=== PATIENT | female | born 1975 | race Caucasian/White ===

== ENCOUNTER → 2016-07-10 | Outpatient (REF) | payer OTHER ==
[~2016-07-10] MED LIST: 8 HO650T PO; ACET500T37 PO; BACL10TA2 PO; CYCL10TA PO; DOCU10CA PO; GABA-283 PO; KETO10TAB PO; MILKSUS PO; PERC5TAB6 PO; TYLE325T5 PO; ULTR50TA PO
== END ==
LOC: M LAB REF 20:08
PROVIDERS: ATTEND Physician Assistant
DX: N39.0 Urinary tract infection, site not specified (principal)

== ENCOUNTER 2016-10-01 11:49 | Emergency (ER) | payer OTHER ==
[~2016-10-01] VITALS: Ht 165.1 cm; Wt 120.2 kg
[2016-10-01 11:50] VITALS: BP 148/76
[2016-10-01] MEDS ORDERED: LOSA50TA21 PO (12:04)
[2016-10-01] MEDS ORDERED: AMRI15CA10 PO (12:04)
[2016-10-01] MEDS ORDERED: [UNRECOGNIZED DRUG - CODE] XX (12:04)
[2016-10-01] MEDS ORDERED: diazePAM 5 MG TAB PO ONE (13:15)
[2016-10-01] MEDS ORDERED: VALI10TA PO (13:38)
== END 2016-10-01 14:01 | disposition home or self-care (01) ==
LOC: M ED 13:47
DX: M54.12 Radiculopathy, cervical region (principal); G89.29 Other chronic pain; G43.909 Migraine, unspecified, not intractable, without status migrainosus; Z79.899 Other long term (current) drug therapy; Z88.5 Allergy status to narcotic agent; Z88.8 Allergy status to other drugs, medicaments and biological substances; Z88.0 Allergy status to penicillin; Z98.84 Bariatric surgery status

== ENCOUNTER → 2016-11-28 | Outpatient (CLI) | payer OTHER ==
[~2016-11-28] MED LIST changes: -8 HO650T PO; +8 HO650T2 PO; +ACET-683 PO; -ACET500T37 PO; +AMRI15CA17 PO; +LOSA50TA5 PO; +PERC5TAB12 PO; -PERC5TAB6 PO; -ULTR50TA PO; +ULTR50TA8 PO; +VALI10TA PO; +[UNRECOGNIZED DRUG - CODE] XX
--- NOTE | 2016-11-28 16:14 | REP ---
REASON FOR EXAM: Back pain. COMPARISON EXAMINATION: 05/01/2013. The prior examination was within normal limits. Today's examination again shows vertebral body height and alignment to be within normal limits. Disc space height and hydrational signal is essentially unchanged and again seen to be within normal limits. No abnormal signal has developed in the imaged portion of the spinal cord. The marrow signal is again seen to be normal. At the L1-2 level there is no change. There was no disc herniation or foraminal narrowing or central canal stenosis. The L2-3 level has no change. There is no disc herniation, foraminal narrowing or central canal stenosis. At the L3-4 level there is no change. There is no disc herniation, foraminal narrowing or central canal stenosis. At the L4-5 level there is no change. There is no disc herniation, foraminal narrowing, or central canal stenosis. At the L5-S1 level there is no change. There is no disc herniation, foraminal narrowing, or central canal stenosis. There is no evidence of a significant disc bulge at any level. IMPRESSION: Unremarkable and unchanged appearing lumbar spine MRI with findings as described above. Signed by Braden Araujo DO 11/28/2016 04:44 P
== END ==
LOC: M RAD 07:26
PROVIDERS: ATTEND Nurse Practitioner Family
DX: G57.00 Lesion of sciatic nerve, unspecified lower limb (principal); M70.60 Trochanteric bursitis, unspecified hip; M50.30 Other cervical disc degeneration, unspecified cervical region; M54.81 Occipital neuralgia; M47.812 Spondylosis without myelopathy or radiculopathy, cervical region; M46.1 Sacroiliitis, not elsewhere classified; R32 Unspecified urinary incontinence; R51 Headache; M79.1 Myalgia; M47.817 Spondylosis without myelopathy or radiculopathy, lumbosacral region

== ENCOUNTER → 2025-01-19 | Outpatient (REF) | payer MEDICAID, OTHER ==
[~2025-01-19] MED LIST changes: +CYCL-707 PO; -CYCL10TA PO; +DIAZ-654 PO; -GABA-283 PO; +GABA-284 PO; +MILK120011 PO; -MILKSUS PO; -VALI10TA PO
== END ==
LOC: M SMT 12:51
PROVIDERS: ATTEND Urology
DX: N39.0 Urinary tract infection, site not specified (principal)

== ENCOUNTER → 2025-02-14 | Outpatient (REF) | payer MEDICAID, OTHER ==
[2025-02-15 13:44] LABS: APPEARANCE, URINE HAZY (CLEAR); BACTERIA, URINE AUTO NEGATIVE (NEGATIVE); BILIRUBIN, URINE AUTO NEGATIVE (NEGATIVE); BLOOD, URINE BLOOD NEGATIVE (NEGATIVE); CALCIUM OXALATE CRYSTALS SMALL; GLUCOSE, URINE (UA) AUTO NEGATIVE (NEGATIVE); KETONE, URINE AUTO NEGATIVE (NEGATIVE); LEUKOCYTE ESTERASE, URINE AUTO NEGATIVE (NEGATIVE); MUCUS, URINE SMALL (NEGATIVE); NITRITE, URINE AUTO NEGATIVE (NEGATIVE); PROTEIN, URINE AUTO NEGATIVE (NEGATIVE); RBC, URINE AUTO 0 /HPF (0-3); SPECIFIC GRAVITY URINE AUTO 1.021 (1.002-1.035); SQUAMOUS EPITHELIAL CELL UR AU 1 /HPF (0-6); UROBILINOGEN, URINE AUTO 2.0 mg/dL (0.0-2.0); WBC, URINE AUTO 0 /HPF (0-3)
== END ==
LOC: M SMT 13:03
PROVIDERS: ATTEND Urology
DX: N39.0 Urinary tract infection, site not specified (principal)